=== PATIENT | female | born 1995 | race Caucasian/White ===

== ENCOUNTER 2024-08-19 18:42 | Emergency (ER) | payer SELFPAY ==
[2024-08-19 18:44] VITALS: BP 128/83; PULSE 129; RESP 16; TEMP 36.7; O2SAT 94; BMI 22.6
--- OUTSIDE RECORDS SUMMARY | 2024-08-19 18:52 | XMS_ITS | Clinical Summary ---
Author Organization [facility] Address [address] 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 Name Role Phone Unavailable Primary Care Provider Unavailabl e Allergies No known active allergies Immunizations Immunization Administration Dates Next Due (ADACEL/BOOSTRIX)(10 YR UP) TDAP VACCINE, 0.5ML, IM 03/14/2008 (M-M-R II/PRIORIX)(12 MO UP) MEASLES, MUMPS AND RUBELLA VIRUS VACCINE, 0.5 ML IM/SUBCUT 02/03/1998,06/05/1994 Dt Dtp Dtap Vaccine 02/03/1998, 5,1993,08/10,1993 HIB, Unspecified Formulation 07/28/1994, 1993,1993,06/07 Hepatitis B Vaccine 1993,1993,1993 IPV/OPV 07/28/1994, 4,1993,06/07 Meningococcal A Conjugate Vaccine IM 03/14/2008 Social History Tobacco Use Types Packs/Day Years Used Date Smoking Tobacco: Never Assessed Comments Unknown Sex and Gender Information Value Date Recorded Sex Assigned at Not on file Legal Sex Female 5:39 AM [employer] ENG[employer] Gender Identity Not on file Sexual Orientation Not on file Plan of Treatment Health Maintenance Due Date Last Done Comments HPV/Cotest (21-29) 2014 DTAP/TDAP/TD VACCINES (7 - Td or Tdap) 03/14/2018 03/14/2008, 02/03/1998, 07/28/1994, Additional history exists CERVICAL CANCER SCREENING 2023 HPV/Cotest (30-65) 2023 PAP SMEAR 2023 INFLUENZA VACCINE (#1) 2023 HEPATITIS B VACCINES Completed 1993, 1993, 1993 HPV VACCINES Aged Out No longer gayla reed based on patient's age to complete this topic
--- NOTE | 2024-08-19 19:05 | ED_ITS ---
HPI - Dental/Oral General: Chief complaint: Dental/Oral Stated complaint: Tooth Infection Time Seen by Provider: 08/19/24 18:46 Source: patient Mode of arrival: ambulatory Limitations: no limitations History of Present Illness: 29-year-old female who presents here wit h right lower dental pain. Has some swelling and abscess formation. She denies any fevers rates her pain 8 out of 10 denies any difficulty swallowing. Associated symptoms: Denies fever(s) Related Data Previous Rx's ?Medication ?Instructions ?Recorded cephalexin 500 mg capsule 500 mg PO TID 7 days #21 cap s 08/19/24 hydrocodone 5 mg-acetaminophen 325 1 tab PO Q6H PRN pa in #14 tabs 08/19/24 mg tablet metronidazole 500 mg tablet 500 mg PO Q8H 7 days #21 t abs 08/19/24 Allergies Allergy/AdvReac Type Severity Reaction Status Date / Time No Known Allergies Allergy Verified 08/19/24 18:55 Review of Systems Const: Denies: fever(s), chills, body aches or change in appetite ENMT: Reports: dental pain; Denies: throat pain Card: Denies: chest pain Resp: Denies: dyspnea GI: Denies: abdominal pain, nausea, vomiting or diarrhea : Denies: dysuria Musc: Denies: neck pain or back pain Skin/Breast: Denies: rash Neuro: Denies: headache(s) Physical Exam Const: COMMON NORMALS: no acute distress, patient oriented x3 and healthy appearing HENMT: COMMON NORMALS: normocephalic and atraumatic HEAD & SCALP: normocephalic and atraumatic OTHER: Poor dentition abscess formation to right lower molar no trismus Eye: COMMON NORMALS: conjunctivae normal CONJUNCTIVA: Yes conjunctivae normal Neck/C-Spine: COMMON NORMALS: full ROM and supple Chest: COMMONS NORMALS: normal inspection of the chest Resp: COMMON NORMALS: normal respiratory effort Cardio: COMMON NORMALS: regular rate RATE: regular rate Extremity: COMMON NORMALS: normal to inspection and full ROM Neuro: COMMON NORMALS: patient oriented x3, moves all extremities and no focal motor deficits Psych: COMMON NORMALS: mental status grossly normal, Normal thought process present and cooperative THOUGHT PROCESS: Normal thought process present Skin: COMMON NORMALS: no rashes or lesions noted and no wounds GENERAL SKIN EXAM: no rashes or lesions noted Procedures Abscess I/D Site: oral and other (dental) Side (if applicable): right Technique: incised with #11 blade Irrigation: No Nerve Block Nerve Block 1: Time out performed: Yes Local Anesthetic: bupivacaine 0.5% Amount of anesthesia used (mL): 10 Side: right Intraoral Nerve Block: inferior alveolar Course Vital Signs: Vital signs: Vital Signs Temperature 98.0 F 08/19/24 18:44 Pulse Rate 129 H 08/19/24 18:44 Respiratory Rate 16 08/19/24 18:44 Blood Pressure 128/83 08/19/24 18:44 Pulse Oximetry 94 08/19/24 18:44 Oxygen Delivery Me thod Room Air 08/19/24 18:44 MDM - Dental/Oral Medical Decision Making Patient presents with a dental abscess that I incised and drained we will start her on antibiotics she stable for discharge follow-up PCP return if worsening. Medical Records I reviewed the patient's medical records. No radiology studies performed this visit Discharge Plan Discharge Patient Disposition: Home Clinical Impression: Dental abscess Condition: Stable Prescriptions: New hydrocodone-acetaminophen 5-325 mg tablet 1 tab PO Q6H PRN (Reason: pain) Qty: 14 0RF metronidazole 500 mg tablet 500 mg PO Q8H 7 Days Qty: 21 0RF cephalexin 500 mg capsule 500 mg PO TID 7 Days Qty: 21 0RF Discharge Orders: Discharge ED (Routine); Ordered 08/19/24 Ordered By: Dany Cardenas Referrals: Maggie Dooley FNP [Primary Care Provider, Nurse Practitioner] Discharge Diet: Advance as tolerated Discharge Activity: Resume usual activity Patient Instructions: Dental Abscess (ED) Print Language: Burundian Coding Level of Care Code ED Manager Housekeeping for Kami Stevens
[2024-08-19] MEDS: cefTRIAXone 1,000 MG in water for injection-sterile 2.1 ML 1 MG IM (19:20)
[2024-08-19 19:34] VITALS: BP 118/78; PULSE 108; O2SAT 97
== END 2024-08-19 19:35 | disposition home or self-care (01) ==
PROVIDERS: Emergency Provider Emergency Medicine; PCP Nurse Practitioner
DX: K04.7 Periapical abscess without sinus (principal)
CPT/HCPCS: 41800; 96372; 99284; J0696